=== PATIENT | male | born 1985 | race Caucasian/White ===

== ENCOUNTER 2019-12-02 09:55 | Emergency (ER) | payer SELFPAY ==
[2019-12-02] MEDS ORDERED: predniSONE 20 MG TAB ONE (10:14)
== END 2019-12-02 10:25 | disposition home or self-care (01) ==
LOC: MADERS 09:55
DX: T78.40XA Allergy, unspecified, initial encounter (principal); F17.290 Nicotine dependence, other tobacco product, uncomplicated
CPT/HCPCS: 99283; J7512